=== PATIENT | female | born 1995 | race Caucasian/White ===

== ENCOUNTER 2018-08-19 19:28 | Inpatient (IN) | payer MEDICAID, OTHER ==
[~2018-08-19] VITALS: Ht 160 cm; Wt 95.4 kg
[~2018-08-19 19:28] MED LIST: CEPH-443 PO; CIPR500T4 PO; DICY10CA40 PO; METR500T PO; PREDNISONE; PRENAT PO
[2018-08-19] MEDS ORDERED: morphine 4 MG/ML VIAL IV STA (21:56)
[2018-08-19] MEDS ORDERED: ONDANSETRON 4 MG INJ IV STA (21:56)
[2018-08-19] MEDS ORDERED: SOD CHLORIDE 0.9% 1,000 ML IV ONE (22:00)
--- NOTE | 2018-08-19 22:00 | ERD ---
ER Documentation Chief Complaint Chief Complaint diffuse belly pain x 2 days; hx Crohn's Dse,given Morphine IV@ the clinic ROS All systems reviewed and are negative except as per history of present illness. Medications Home Meds Active Scripts Multivit/Min/Fol Ac/Iron/Pren* ( S*) 1 Tab Tab, 1 TAB PO DAILY, #30 TAB Prov:NORMA CHRISTIANSON PA-C 01/20/16 Cephalexin* (Keflex*) 500 Mg Capsule, 500 MG PO QID for 10 Days, CAP Prov:NORMA CHRISTIANSONC 01/20/16 Ciprofloxacin Hcl* (Ciprofloxacin Hcl*) 500 Mg Tablet, 500 MG PO BID for 10 Days, TAB Prov:NEVIN SABA NP 09/05/15 Metronidazole* (Flagyl*) 500 Mg Tablet, 500 MG PO TID for 10 Days, TAB Prov:NEVIN SABA NP 09/05/15 Dicyclomine HCl (Dicyclomine HCl) 10 Mg Capsule, 10 MG PO QID for abdominal cramping, #30 CAP Prov:NEVIN SABA NP 09/05/15 Reported Medications [none] Unknown Strength No Conflict Check 09/05/15 [Prednisone] No Conflict Check 03/17/13 Allergies Allergies: Coded Allergies: No Known Drug Allergy (Verified Allergy, Mild, 01/20/16) PMhx/Soc History of Surgery: No Anesthesia Reaction: No Hx Neurological Disorder: No Hx Respiratory Disorders: No Hx Cardiac Disorders: No Hx Psychiatric Problems: No Hx Miscellaneous Medical Probl: No Hx Alcohol Use: No Hx Substance Use: No Hx Tobacco Use: No Physical Exam Vitals Vital Signs Date Temp Pulse Resp B/P (MAP) Pulse Ox O2 O2 Flow FiO2 Time Delivery Rate 08/19/18 99.3 81 18 133/61 100 19:32 (85) Physical Exam Const: No acute distress Head: Atraumatic Eyes: Normal Conjunctiva ENT: Normal External Ears, Nose and Mouth. Neck: Full range of motion. No meningismus. Resp: Clear to auscultation bilaterally Cardio: Regular rate and rhythm, no murmurs Abd: Soft, non tender, non distended. Normal bowel sounds. Diffuse abdominal tenderness. No CVA tenderness. Skin: No petechiae or rashes Back: No midline or flank tenderness Ext: No cyanosis, or edema Neur: Awake and alert. No neurological deficits. Psych: Normal Mood and Affect Result Diagram: 08/19/18222008/19/182220 Results 24 hrs Laboratory Tests Test 08/19/18 22:21 White Blood Count 25.0 10^3/ul Red Blood Count 4.78 10^6/ul Hemoglobin 9.2 g/dl Hematocrit 31.6 % Mean Corpuscular Volume 66.1 fl Mean Corpuscular Hemoglobin 19.2 pg Mean Corpuscular Hemoglobin Concent 29.1 g/dl Red Cell Distribution Width 17.5 % Platelet Count 683 10^3/UL Mean Platelet Volume 10.0 fl Immature Granulocytes % 1.000 % Neutrophils % % Segmented Neutrophils % (Manual) 49 % Band Neutrophils % (Manual) 11 % Lymphocytes % % Lymphocytes % (Manual) 24 % Monocytes % % Monocytes % (Manual) 10 % Eosinophils % % Eosinophils % (Manual) 5 % Basophils % % Basophils % (Manual) 1 % Nucleated Red Blood Cells % 0.0 /100WBC Immature Granulocytes # 0.240 10^3/ul Neutrophils # 10^3/ul Neutrophils # (Manual) 12.9 10^3/ul Band Neutrophils # 2.7 10^3/ul Lymphocytes (Manual) 6.0 10^3/ul Lymphocytes # 10^3/ul Monocytes # 10^3/ul Monocytes # (Manual) 2.5 10^3/ul Eosinophils # 10^3/ul Basophils # 10^3/ul Basophils # (Manual) 0.2 10^3/ul Nucleated Red Blood Cells # 10^3/ul Pathologist Review (Hematology) YES Platelet Estimate INCREASED Giant Platelets 2 % Poikilocytosis 2+ Anisocytosis 1+ Microcytosis 1+ Ovalocytes 2+ Acanthocytes 1+ Erythrocyte Sedimentation Rate 35 mm/Hr Urine Color YELLOW Urine Clarity CLOUDY Urine pH 7.0 Urine Specific [place] 1.016 Urine Ketones 1+ mg/dL Urine Nitrite NEGATIVE mg/dL Urine Bilirubin NEGATIVE mg/dL Urine Urobilinogen NEGATIVE mg/dL Urine Leukocyte Esterase 1+ Cherelle/ul Urine Microscopic RBC 13 /HPF Urine Microscopic WBC 11 /HPF Urine Squamous Epithelial Cells FEW /HPF Urine Bacteria FEW /HPF Urine Mucus FEW /HPF Urine Hemoglobin 1+ mg/dL Urine Glucose NEGATIVE mg/dL Urine Total Protein NEGATIVE mg/dl Sodium Level 141 mmol/L Potassium Level 4.0 mmol/L Chloride Level 106 mmol/L Carbon Dioxide Level 25 mmol/L Anion Gap 10 Blood Urea Nitrogen 4 mg/dl Creatinine 0.65 mg/dl Est Glomerular Filtrat Rate mL/min > 60 mL/min Glucose Level 92 mg/dl Calcium Level 9.0 mg/dl Total Bilirubin 0.1 mg/dl Direct Bilirubin 0.00 mg/dl Indirect Bilirubin 0.1 mg/dl Aspartate Amino Transf (AST/SGOT) 12 IU/L Alanine Aminotransferase (ALT/SGPT) 17 IU/L Alkaline Phosphatase 85 IU/L C-Reactive Protein 4.0 mg/dl Total Protein 7.6 g/dl Albumin 3.9 g/dl Globulin 3.70 g/dl Albumin/Globulin Ratio 1.05 Amylase Level 63 U/L Lipase 44 U/L Serum HCG, Qualitative NEGATIVE Urine Opiates Screen Positive Urine Barbiturates Negative Urine Amphetamines Screen Negative Urine Benzodiazepines Screen Negative Urine Cocaine Screen Negative Urine Cannabinoids Negative Current Medications Medications Dose Sig/Lukas Start Time Status Last (Trade) Ordered Route PRN Stop Time Admin Dose Reason Admin Sodium 1,000 ml @ Q1H ONCE 08/19/18 DC 08/19/18 Chloride 1,000 mls/hr IV 22:00 22:31 08/19/18 22:59 Ondansetron 4 mg ONCE STAT 08/19/18 DC 08/19/18 HCl (Zofran IV 21:56 22:30 Inj) 08/19/18 22:00 Morphine 4 mg ONCE STAT 08/19/18 DC 08/19/18 Sulfate IV 21:56 22:30 (morphine) 08/19/18 22:00 10 mg ONCE ONCE 08/19/18 DC Dexamethasone IM 22:30 (Decadron) 08/19/18 22:30 10 mg ONCE ONCE 08/19/18 DC 08/19/18 Dexamethasone IV 22:30 22:47 (Decadron) 08/19/18 22:31 Procedures/MDM Prescription: Follow-up with PCP in the next 24-48 hours. Come back here in the emergency department for any new symptoms or any worsening symptoms. All questions and concerns were answered. Patient and family members verbalized understanding and agreed with plan of care. Hemodynamically stable on discharge. SURAJ ALEJO Aug 19, 2018 22:00
[2018-08-19] MEDS ORDERED: DEXAMETHASONE 10 MG/ML 1 ML INJ IM ONE (22:30)
[2018-08-19] MEDS ORDERED: DEXAMETHASONE 10 MG/ML 1 ML INJ IV ONE (22:30)
[2018-08-20] MEDS ORDERED: SOD CHLORIDE 0.9% 1,000 ML IV STA (00:16)
[2018-08-20] MEDS ORDERED: PIPER-TAZO 3.375 GM IV (PMX) 100 ML IVPB ONE (01:00)
--- NOTE | 2018-08-20 01:01 | ERD ---
ER Documentation Chief Complaint Chief Complaint diffuse belly pain x 2 days; hx Crohn's Dse,given Morphine IV@ the clinic HPI 22-year-old female with a history of Crohn's disease not currently on any medications presenting to the ER complaining of diffuse abdominal pain and bloody stools for the past 2 days. She was seen at [facility] yesterday and admission was recommended, but the patient signed out AGAINST MEDICAL ADVICE because they were going to transfer her to another hospital. She was given 2 oral antibiotics to take at home, but she has been vomiting that antibiotics up and cannot tolerate them. She is having intermittent cramping pain, that worsens after she has a bowel movement. She complains of feeling generally weak. She denies any nausea, fever, chills. She currently does not have a doctor who is taking care of her Crohn's. She just moved here from [facility] and her primary care doctor is Dr. Alexandre, but she has not seen this doctor yet. ROS All systems reviewed and are negative except as per history of present illness. Medications Home Meds Active Scripts Multivit/Min/Fol Ac/Iron/Pren* ( S*) 1 Tab Tab, 1 TAB PO DAILY, #30 TAB Prov:NORMA CHRISTIANSON PA-C 01/20/16 Cephalexin* (Keflex*) 500 Mg Capsule, 500 MG PO QID for 10 Days, CAP Prov:NROMA CHRISTIANSON PA-C 01/20/16 Ciprofloxacin Hcl* (Ciprofloxacin Hcl*) 500 Mg Tablet, 500 MG PO BID for 10 Days, TAB Prov:NEVIN SABA [employer] 09/05/15 Metronidazole* (Flagyl*) 500 Mg Tablet, 500 MG PO TID for 10 Days, TAB Prov:NEVIN SABA NP 09/05/15 Dicyclomine HCl (Dicyclomine HCl) 10 Mg Capsule, 10 MG PO QID for abdominal cramping, #30 CAP Prov:NEVIN SABA NP 09/05/15 Reported Medications [none] Unknown Strength No Conflict Check 09/05/15 [Prednisone] No Conflict Check 03/17/13 Allergies Allergies: Coded Allergies: No Known Drug Allergy (Verified Allergy, Mild, 01/20/16) PMhx/Soc History of Surgery: Yes (, CHOLECYSTECTOMY) Anesthesia Reaction: No Hx Neurological Disorder: No Hx Respiratory Disorders: No Hx Cardiac Disorders: No Hx Psychiatric Problems: No Hx Miscellaneous Medical Probl: Yes (CROHNS DIS) Hx Alcohol Use: No Hx Substance Use: No Hx Tobacco Use: No FmHx Family History: No diabetes Physical Exam Vitals Vital Signs Date Temp Pulse Resp B/P (MAP) Pulse Ox O2 O2 Flow FiO2 Time Delivery Rate 08/20/18 85 16 115/70 96 Room Air 04:00 (85) 08/20/18 98.7 94 18 107/64 95 Room Air 02:00 (78) 08/19/18 99.3 81 18 133/61 100 19:32 (85) Physical Exam Const: No acute distress Head: Atraumatic Eyes: Normal Conjunctiva ENT: Normal External Ears, Nose and Mouth. Neck: Full range of motion. No meningismus. Resp: Clear to auscultation bilaterally Cardio: Regular rate and rhythm, no murmurs Abd: Soft, minimal diffuse tenderness, non distended. Hyperactive bowel sounds Skin: Pale skin. No petechiae or rashes Back: No midline or flank tenderness Ext: No cyanosis, or edema Neur: Awake and alert Psych: Normal Mood and Affect Result Diagram: 08/19/18222008/19/182220 Results 24 hrs Laboratory Tests Test 08/19/18 22:21 08/20/18 01:57 White Blood Count 25.0 10^3/ul Red Blood Count 4.78 10^6/ul Hemoglobin 9.2 g/dl Hematocrit 31.6 % Mean Corpuscular Volume 66.1 fl Mean Corpuscular Hemoglobin 19.2 pg Mean Corpuscular Hemoglobin Concent 29.1 g/dl Red Cell Distribution Width 17.5 % Platelet Count 683 10^3/UL Mean Platelet Volume 10.0 fl Immature Granulocytes % 1.000 % Neutrophils % % Segmented Neutrophils % (Manual) 49 % Band Neutrophils % (Manual) 11 % Lymphocytes % % Lymphocytes % (Manual) 24 % Monocytes % % Monocytes % (Manual) 10 % Eosinophils % % Eosinophils % (Manual) 5 % Basophils % % Basophils % (Manual) 1 % Nucleated Red Blood Cells % 0.0 /100WBC Immature Granulocytes # 0.240 10^3/ul Neutrophils # 10^3/ul Neutrophils # (Manual) 12.9 10^3/ul Band Neutrophils # 2.7 10^3/ul Lymphocytes (Manual) 6.0 10^3/ul Lymphocytes # 10^3/ul Monocytes # 10^3/ul Monocytes # (Manual) 2.5 10^3/ul Eosinophils # 10^3/ul Basophils # 10^3/ul Basophils # (Manual) 0.2 10^3/ul Nucleated Red Blood Cells # 10^3/ul Pathologist Review (Hematology) YES Platelet Estimate INCREASED Giant Platelets 2 % Poikilocytosis 2+ Anisocytosis 1+ Microcytosis 1+ Ovalocytes 2+ Acanthocytes 1+ Erythrocyte Sedimentation Rate 35 mm/Hr Urine Color YELLOW Urine Clarity CLOUDY Urine pH 7.0 Urine Specific [place] 1.016 Urine Ketones 1+ mg/dL Urine Nitrite NEGATIVE mg/dL Urine Bilirubin NEGATIVE mg/dL Urine Urobilinogen NEGATIVE mg/dL Urine Leukocyte Esterase 1+ Cherelle/ul Urine Microscopic RBC 13 /HPF Urine Microscopic WBC 11 /HPF Urine Squamous Epithelial Cells FEW /HPF Urine Bacteria FEW /HPF Urine Mucus FEW /HPF Urine Hemoglobin 1+ mg/dL Urine Glucose NEGATIVE mg/dL Urine Total Protein NEGATIVE mg/dl Sodium Level 141 mmol/L Potassium Level 4.0 mmol/L Chloride Level 106 mmol/L Carbon Dioxide Level 25 mmol/L Anion Gap 10 Blood Urea Nitrogen 4 mg/dl Creatinine 0.65 mg/dl Est Glomerular Filtrat Rate mL/min > 60 mL/min Glucose Level 92 mg/dl Calcium Level 9.0 mg/dl Total Bilirubin 0.1 mg/dl Direct Bilirubin 0.00 mg/dl Indirect Bilirubin 0.1 mg/dl Aspartate Amino Transf (AST/SGOT) 12 IU/L Alanine Aminotransferase (ALT/SGPT) 17 IU/L Alkaline Phosphatase 85 IU/L C-Reactive Protein 4.0 mg/dl Total Protein 7.6 g/dl Albumin 3.9 g/dl Globulin 3.70 g/dl Albumin/Globulin Ratio 1.05 Amylase Level 63 U/L Lipase 44 U/L Serum HCG, Qualitative NEGATIVE Urine Opiates Screen Positive Urine Barbiturates Negative Urine Amphetamines Screen Negative Urine Benzodiazepines Screen Negative Urine Cocaine Screen Negative Urine Cannabinoids Negative POC Venous Lactate 1.2 mmol/L Current Medications Medications Dose Sig/Lukas Start Time Status Last (Trade) Ordered Route PRN Stop Time Admin Dose Reason Admin Sodium 1,000 ml @ Q1H ONCE 08/19/18 DC 08/19/18 Chloride 1,000 mls/hr IV 22:00 22:31 08/19/18 22:59 Ondansetron 4 mg ONCE STAT 08/19/18 DC 08/19/18 HCl (Zofran IV 21:56 22:30 Inj) 08/19/18 22:00 Morphine 4 mg ONCE STAT 08/19/18 DC 08/19/18 Sulfate IV 21:56 22:30 (morphine) 08/19/18 22:00 10 mg ONCE ONCE 08/19/18 DC Dexamethasone IM 22:30 (Decadron) 08/19/18 22:30 10 mg ONCE ONCE 08/19/18 DC 08/19/18 Dexamethasone IV 22:30 22:47 (Decadron) 08/19/18 22:31 Sodium 1,000 ml @ Q1H STAT 08/20/18 DC 08/20/18 Chloride 1,000 mls/hr IV 00:16 00:25 08/20/18 01:15 Piperacillin 100 ml @ ONCE ONCE 08/20/18 DC 08/20/18 Sod/ 200 mls/hr IVPB 01:00 01:45 Tazobactam 08/20/18 01:29 Sod Morphine 4 mg ONCE STAT 08/20/18 DC 08/20/18 Sulfate IV 03:30 03:39 (morphine) 08/20/18 03:31 Ondansetron 4 mg BRIDGE ORDER 08/20/18 HCl (Zofran PRN IV 04:30 Inj) NAUSEA/VOMITI 08/21/18 04:29 NG 650 mg ER BRIDGE 08/20/18 Acetaminophen PRN PO 04:30 (Tylenol .MILD PAIN 08/21/18 04:29 Tab) 1-3 OR TEMP Procedures/MDM EMERGENT LABS AND DIAGNOSTIC STUDIES: Lab Results above were reviewed and interpreted by me. CBC significant leukocytosis, concerning for infection. Thrombocytosis also concerning for acute inflammation CMP: No evidence of electrolyte abnormality, renal failure, hypoglycemia, liver failure, or biliary obstruction Lactate within normal limits without evidence of sepsis or tissue hypoperfusion UA: no evidence of infection negative ESR and CRP are elevated, consistent with acute inflammation Initial Nursing notes reviewed. Previous Medical Records requested via the Electronic Health Record. EMERGENCY DEPARTMENT COURSE / MEDICAL DECISION MAKING: Patient had labs and CT scan done yesterday at [place]. I reviewed the results and it shows white blood cell count of 20, hemoglobin 9.9, platelets 641 CT abdomen and pelvis showed findings compatible with inflammatory bowel disease involving primarily the colon without abscess or perforation. Patient is presenting with worsening symptoms and is unable to tolerate oral antibiotics at home. Her labs today show increasing white blood cell count. Her presentation is not consistent with sepsis, however given her increasing white blood cell count, I cannot rule out an underlying bacterial colitis. Blood cultures were collected, Steroids IV, and IV fluids and IV antibiotics were given. Patient will require admission for further management. Accepting Care Team: Current data and ongoing care discussed. Time: Time of admission Primary Provider: Dr.Kama Hawk Diagnosis: Primary Impression: Crohn's colitis Digestive disease complication type: with rectal bleeding Qualified Codes: K50.111 - Crohn's disease of large intestine with rectal bleeding Additional Impressions: Iron deficiency anemia Iron deficiency anemia type: chronic blood loss Qualified Codes: D50.0 - Iron deficiency anemia secondary to blood loss (chronic) Thrombocytosis Condition: Serious ALO ÁLVAREZ MD Aug 20, 2018 01:01
[2018-08-20] MEDS ORDERED: morphine 4 MG/ML VIAL IV STA (03:30)
[2018-08-20] MEDS ORDERED: ONDANSETRON 4 MG INJ IV PRN ×2 (04:30→07:00)
[2018-08-20] MEDS ORDERED: ACETAMINOPHEN 325 MG TAB PO PRN ×2 (04:30→07:00)
[2018-08-20 06:21] VITALS: Ht 160 cm; Wt 95.4 kg
[2018-08-20 06:29] VITALS: BP 93/51; PULSE 70; RESP 17
[2018-08-20] MEDS ORDERED: morphine 2 MG INJ IV PRN (07:00)
[2018-08-20 07:25] VITALS: BP 98/54; PULSE 54; RESP 16
[2018-08-20] MEDS: DEXTROSE 5%-0.45% NACL 1,000 ML IV SCH ×2 (08:09→16:32)
[2018-08-20] MEDS: FAMOTIDINE 20 MG TAB PO SCH ×2 (08:09→20:15)
[2018-08-20] MEDS: morphine 4 MG/ML VIAL IV PRN ×4 (08:09→20:56)
--- NOTE | 2018-08-20 11:45 | HP ---
Date/Time of Note Date/Time of Note DATE: 08/20/18 TIME: 11:27 Assessment/Plan VTE Prophylaxis Risk score (from [facility])>0 risk: 0 SCD applied (from [facility]): Yes Pharmacological prophylaxis: NA/contraindicated Pharm contraindication: bleeding Lines/Catheters IV Catheter Type (from [facility]): Peripheral IV Assessment/Plan Assessment/Plan 22-year-old female with: 1. Suspected acute Crohn's disease flare, patient with abdominal pain, mild to moderate rectal bleeding, laboratory data consistent with acute inflammatory process with elevated ESR, CRP, WBC and also platelets. Of note patient did get large doses of steroids approximately 3 days ago both hydrocortisone 20 mg IV x1 and prednisone 50 mg p.o. x1 at [facility]. We will follow-up on blood cultures from [place]. Cultures drawn here, stool studies sent out including C. difficile. Continue Zosyn for now. GI consult prior to any additional steroids to be given. Follow up recommendations from GI. Clear liquid, IV fluids. 2. Anemia, likely chronic and secondary to chronic disease. Patient may also have acute component given ongoing rectal bleeding. Monitor hemoglobin, plan for transfusion for hemoglobin < 7 3. Thrombocytosis, likely in setting of inflammatory process and/or underlying infection. Continue current antibiotics and monitor. 4. Positive UA: We will send urine culture. Patient on broad-spectrum an tibiotics already. Prophylaxis: SCDs for DVT prophylaxis, Pepcid for GI prophylaxis Disposition: Clear liquids, IV fluids, GI consult, follow-up cultures from [facility] and stool culture to be sent today. Result Diagram: 08/20/18 0748 08/20/18 0748 Results 24hrs Laboratory Tests Test 08/19/18 22:21 08/20/18 01:57 08/20/18 04:23 08/20/18 07:48 White Blood Count 25.0 #H 27.3 H Red Blood Count 4.78 5.03 Hemoglobin 9.2 #L 9.6 L Hematocrit 31.6 L 33.3 L Mean Corpuscular 66.1 L 66.2 L Volume Mean Corpuscular 19.2 #L 19.1 L Hemoglobin Mean Corpuscular 29.1 L 28.8 L Hemoglobin Concent Red Cell 17.5 #H 17.5 H Distribution Width Platelet Count 683 H 725 H Mean Platelet Volume 10.0 9.7 Immature 1.000 H 1.100 H Granulocytes % Neutrophils % Segmented 49 64 Neutrophils % (Manual) Band Neutrophils % 11 H 28 H (Manual) Lymphocytes % Lymphocytes % 24 8 L (Manual) Monocytes % Monocytes % (Manual) 10 Eosinophils % Eosinophils % 5 (Manual) Basophils % Basophils % (Manual) 1 Nucleated Red Blood 0.0 0.0 Cells % Immature 0.240 H 0.300 H Granulocytes # Neutrophils # Neutrophils # 12.9 H 19.5 H (Manual) Band Neutrophils # 2.7 H 7.6 H Lymphocytes (Manual) 6.0 H 2.1 Lymphocytes # Monocytes # Monocytes # (Manual) 2.5 H Eosinophils # Basophils # Basophils # (Manual) 0.2 H Nucleated Red Blood Cells # Pathologist YES Review (Hematology) Platelet Estimate INCREASED INCREASED Giant Platelets 2 H 1 H Poikilocytosis 2+ 3+ Anisocytosis 1+ 3+ Microcytosis 1+ 3+ Ovalocytes 2+ Acanthocytes 1+ Erythrocyte 35 H 36 H Sedimentation Rate Urine Color YELLOW Urine Clarity CLOUDY A Urine pH 7.0 Urine Specific 1.016 [place] Urine Ketones 1+ H Urine Nitrite NEGATIVE Urine Bilirubin NEGATIVE Urine Urobilinogen NEGATIVE Urine Leukocyte 1+ H Esterase Urine Microscopic 13 H RBC Urine Microscopic 11 H WBC Urine Squamous FEW Epithelial Cells Urine Bacteria FEW A Urine Mucus FEW A Urine Hemoglobin 1+ H Urine Glucose NEGATIVE Urine Total Protein NEGATIVE Sodium Level 141 141 Potassium Level 4.0 4.3 Chloride Level 106 107 Carbon Dioxide Level 25 23 Anion Gap 10 11 Blood Urea Nitrogen 4 L 2 L Creatinine 0.65 0.53 Est Glomerular > 60 > 60 Filtrat Rate mL/min Glucose Level 92 149 # Calcium Level 9.0 9.2 Total Bilirubin 0.1 L Direct Bilirubin 0.00 Indirect Bilirubin 0.1 Aspartate Amino 12 L Transf (AST/SGOT) Alanine 17 Aminotransferase (AL T/SGPT) Alkaline Phosphatase 85 C-Reactive Protein 4.0 H 3.8 H Total Protein 7.6 Albumin 3.9 Globulin 3.70 H Albumin/Globulin 1.05 Ratio Amylase Level 63 Lipase 44 Serum HCG, NEGATIVE Qualitative Urine Opiates Screen Positive Urine Barbiturates Negative Urine Amphetamines Negative Screen Urine Negative Benzodiazepines Screen Urine Cocaine Screen Negative Urine Cannabinoids Negative POC Venous Lactate 1.2 Lactic Acid Level 0.8 Polychromasia 3+ Hypochromasia 2+ Phosphorus Level 2.8 Magnesium Level 2.1 HPI/ROS Admit Date/Time Admit Date/Time Aug 19, 2018 at 23:49 Hx of Present Illness Chief complaint: Abdominal pain, chills, rectal bleeding History of presenting illness: This is a 22-year-old female with a history of Crohn's disease apparently diagnosed in childhood and has been off all medications for the past 10 years who presented at [facility] on 08/18 with complains of abdominal pain for 24 hours, loose stools, rectal bleeding and chills for 10-12 days. Patient subsequently left AMA when she was told that she was being transferred to [facility]. She presented in the ER here at [facility] early this morning with complaint of ongoing abdominal pain and rectal bleeding. According to records from [facility], patient was given a dose of hydrocortisone 20 mg x1 and subsequently pred nisone 50 mg p.o. x1 prior to her leaving AGAINST MEDICAL ADVICE she was also given a prescription for ciprofloxacin and Flagyl that she did not take. WBC at [facility] was 20,000, is up to 27,000 this morning here at [facility]. Patient reports that for the past 10 years, she has had episodes of flare-ups but never really took correction maintenance medications. Her current symptoms started approximately 10-12 days ago with loose stools and rectal bleeding. She has seen occasionally bright red blood but most of the time dark blood. Her abdominal pain started approximately 3-4 days ago, it will start on the lower part of the abdomen and generalized to the whole abdomen. Currently she still having moderate to severe pain relieved with morphine, she reports that her pain is unchanged over the past 3-4 days. She had a CAT scan of the abdomen and pelvis with IV contrast at [facility] that showed signs of colitis, no abscess or perforation seen. She reports having chills at home but has been tolerating p.o. most of the time. She reports nausea and vomiting over the past 2-3 days. No genitourinary complaints reported, no cardiopulmonary complaints reported. 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 Medications Current Medications Dextrose/Sodium Chloride 1,000 ml @ 125 mls/hr Q8H IV Last administered on 08/20/18at 08:09; Admin Dose 125 MLS/HR; Start 08/20/18 at 07:00 Piperacillin Sod/ Tazobactam Sod 100 ml @ 200 mls/hr Q6 IVPB ; Start 08/20/18 at 12:00 Morphine Sulfate (morphine) 4 mg Q4H PRN IV SEVERE PAIN LEVEL 7-10 Last administered on 08/20/18at 08:09; Admin Dose 4 MG; Start 08/20/18 at 07:00 Morphine Sulfate (morphine) 2 mg Q4H PRN IV MODERATE PAIN LEVEL 4-6; Start 08/20/18 at 07:00 Famotidine (Pepcid) 20 mg BID PO Last administered on 08/20/18at 08:09; Admin Dose 20 MG; Start 08/20/18 at 09:00 Acetaminophen (Tylenol Tab) 650 mg Q6H PRN PO MILD PAIN(1-3)OR ELEVATED TEMP; Start 08/20/18 at 07:00 Ondansetron HCl (Zofran Inj) 4 mg Q6H PRN IV NAUSEA AND/OR VOMITING; Start 08/20/18 at 07:00 Coded Allergies: No Known Drug Allergy (Unverified Allergy, Mild, 08/20/18) Past Surgical History Status post cholecystectomy remotely Status post couple years ago. Social History Alcohol Use: none Smoking Status: Never smoker Drug Use: none Exam/Review of Systems Vital Signs Vitals Vital Signs Date Temp Pulse Resp B/P (MAP) Pulse Ox O2 O2 Flow FiO2 Time Delivery Rate 08/20/18 98.1 54 16 98/54 (69) 94 Room Air 07:25 Intake and Output 08/19/18 08/19/18 08/20/18 1515:00 23:00 07:00 IntakeIntake Total 2100 ml BalanceBalance 2100 ml Exam Constitutional: alert, oriented, other (Obese) Psych: no complaints Head: normocephalic Eyes: nl conjunctiva, EOMI, nl lids, nl sclera ENMT: nl external ears & nose, nl lips & teeth, nl nasal mucosa & septum Neck: supple, non-tender Respiratory: clear to auscultation, normal air movement Cardiovascular: regular rate and rhythm, nl pulses Gastrointestinal: soft, tender (Diffusely, primarily lower abdomen.) Musculoskeletal: nl extremities to inspection, nl gait and stance Extremities: normal pulses, other (No edema, clubbing or cyanosis) Neurological: [employer] II-XII intact, nl mental status, nl speech, nl strength Additional Comments CT abdomen pelvis with IV contrast from [place] on 08/18 reported as: Findings compatible with inflammatory bowel disease involving primarily the colon. No abscess or evidence of free perforation is noted Post cholecystectomy Full report requested and will be placed in the chart. MASOUD ORTEGA Aug 20, 2018 11:38
[2018-08-20] MEDS: PIPER-TAZO 3.375 GM IV (PMX) 100 ML IVPB SCH ×2 (12:37→17:34)
--- NOTE | 2018-08-20 13:45 | CONS ---
Assessment/Plan Assessment/Plan Assessment/Plan (Daily) Summary Assessment and Plan: Assessment: Abdominal pain/diarrhea -Crohn's flare (CRP/ESR elevated) vs infectious vs other -Ct 08/18/18- from [facility]- imaging better with inflammatory bowel disease and vo miting primarily the colon History of Crohn's disease- not on medication at home Leukocytosis (infectious vs reactive) Thrombocytosis Normocytic anemia UTI- on ABX Plan: Start mesalamine Await stool studies prior to starting steroid therapy Advance diet to low residue Pt will need out-pt colonoscopy Monitor labs Further recommendations based on clinical course Patient seen in collaboration with Dr. Tiwari CC: LOPEZ TIWARI ; Consultation Date/Type/Reason Admit Date/Time Aug 19, 2018 at 23:49 Date of Consultation: Aug 20, 2018 Type of Consult GI Reason for Consultation History of Crohn's disease Query Crohn's flare Date/Time of Note DATE: 08/20/18 TIME: 13:20 Hx of Present Illness This is a 22 year old female with PMH of Crohn's disease dx as a child, at one point she was under the care of a physician at [facility]was taking Asacol/prednisone, however the patient moved to [facility] and has not been under the care of a GI provider or has been on medication for IBD in some time. For the past 5-6 days she has been c/o abdominal pain which has become progressively worse, as well, as bloody diarrhea up to 5-8 per day. She presented to [facility] on August 18 there she underwent a CAT scan with contrast impression showing findings compatible with inflammatory bowel disease involving primarily the colon. No abscess or evidence of free perforation is noted. Post cholecystectomy. Patient was going to be transferred to [facility] secondary to insurance reasons however she left [facility] because she did not want to be transferred she was given 2 different oral antibiotics to take at home but she was unable to tolerate them 2/2 nausea and vomiting. Leukocytosis WBC 27.3, thrombocytosis platelet count 725, elevated C-reactive protein 3.8 today and an elevated ESR of 36 today. Currently patient complains of abdominal discomfort she denies nausea/vomiting. She states in the past 24 hours she had had x3 Bm, less blood has been noted. Currently we will start patient on hutchins williams, will hold off on steroid therapy until stool studies have returned, and to advance diet to low residue. Patient will additionally need to follow-up after discharge for outpatient colonoscopy. She believes her last colonoscopy was completed as a child and does not know results. Review of Systems: A 12 system, review was conducted and is negative except as noted in the HPI or here. Past Medical History Home Meds Discontinued Reported Medications [none] Unknown Strength No Conflict Check 09/05/15 [Prednisone] No Conflict Check 03/17/13 Discontinued Scripts Multivit/Min/Fol Ac/Iron/Pren* ( S*) 1 Tab Tab, 1 TAB PO DAILY, #30 TAB Prov:NORMA CHRISTIANSON PA-C 01/20/16 Cephalexin* (Keflex*) 500 Mg Capsule, 500 MG PO QID for 10 Days, CAP Prov:NORMA CHRISTIANSON PA-C 01/20/16 Ciprofloxacin Hcl* (Ciprofloxacin Hcl*) 500 Mg Tablet, 500 MG PO BID for 10 D ays, TAB Prov:NEVIN SABA GEAR TOOTH GRINDING MACHINE OPERATOR 09/05/15 Metronidazole* (Flagyl*) 500 Mg Tablet, 500 MG PO TID for 10 Days, TAB Prov:NEVIN SABA. GEAR TOOTH GRINDING MACHINE OPERATOR 09/05/15 Dicyclomine HCl (Dicyclomine HCl) 10 Mg Capsule, 10 MG PO QID for abdominal cramping, #30 CAP Prov:NEVIN SABA. GEAR TOOTH GRINDING MACHINE OPERATOR 09/05/15 Medications Current Medications Dextrose/Sodium Chloride 1,000 ml @ 125 mls/hr Q8H IV Last administered on 08/20/18at 08:09; Admin Dose 125 MLS/HR; Start 08/20/18 at 07:00 Piperacillin Sod/ Tazobactam Sod 100 ml @ 200 mls/hr Q6 IVPB Last administered on 08/20/18at 12:37; Admin Dose 200 MLS/HR; Start 08/20/18 at 12:00 Morphine Sulfate (morphine) 4 mg Q4H PRN IV SEVERE PAIN LEVEL 7-10 Last administered on 08/20/18at 12:37; Admin Dose 4 MG; Start 08/20/18 at 07:00 Morphine Sulfate (morphine) 2 mg Q4H PRN IV MODERATE PAIN LEVEL 4-6; Start 08/20/18 at 07:00 Famotidine (Pepcid) 20 mg BID PO Last administered on 08/20/18at 08:09; Admin Dose 20 MG; Start 08/20/18 at 09:00 Acetaminophen (Tylenol Tab) 650 mg Q6H PRN PO MILD PAIN(1-3)OR ELEVATED TEMP; Start 08/20/18 at 07:00 Ondansetron HCl (Zofran Inj) 4 mg Q6H PRN IV NAUSEA AND/OR VOMITING; Start 08/20/18 at 07:00 Allergies: Coded Allergies: No Known Drug Allergy (Unverified Allergy, Mild, 08/20/18) Social History Alcohol Use: none Smoking Status: Never smoker Drug Use: none Exam/Review of Systems Exam Vitals Vital Signs Date Temp Pulse Resp B/P (MAP) Pulse Ox O2 O2 Flow FiO2 Time Delivery Rate 08/20/18 98.1 54 16 98/54 (69) 94 Room Air 07:25 Intake and Output 08/19/18 08/19/18 08/20/18 1515:00 23:00 07:00 IntakeIntake Total 2100 ml BalanceBalance 2100 ml PHYSICAL EXAMINATION: GENERAL: Well developed, well nourished, obese, alert & oriented x 3, in no acute distress SKIN: No lesions, no stigmata chronic liver disease, no evidence of bleeding diathesis EYES: Pupils equal reactive to light and accommodation, full extraocular movements, sclera clear, non-icteric, no discharge. EARS/NOSE AND THROAT: Ears normal, nose normal, oropharynx normal, oral membranes well hydrated without lesions. NECK: Supple, no masses CHEST: Inspection within normal limits. CARDIOVASCULAR: Heart: Regular rate and rhythm RESPIRATORY: Lungs clear to auscultation and percussion, no wheezing, no rubs GASTROINTESTINAL AND LIVER: Abdomen: Soft, generalized tenderness, non- distended, no hernias, no masses, no organomegaly, no ascites, no guarding, no rebound tenderness, normoactive bowel sounds. Rectal: Deferred. Results Result Diagram: 08/20/18 0748 08/20/18 0748 Results 24hrs Laboratory Tests Test 08/19/18 22:21 08/20/18 01:57 08/20/18 04:23 08/20/18 07:48 White Blood Count 25.0 #H 27.3 H Red Blood Count 4.78 5.03 Hemoglobin 9.2 #L 9.6 L Hematocrit 31.6 L 33.3 L Mean Corpuscular 66.1 L 66.2 L Volume Mean Corpuscular 19.2 #L 19.1 L Hemoglobin Mean Corpuscular 29.1 L 28.8 L Hemoglobin Concent Red Cell 17.5 #H 17.5 H Distribution Width Platelet Count 683 H 725 H Mean Platelet Volume 10.0 9.7 Immature 1.000 H 1.100 H Granulocytes % Neutrophils % Segmented 49 64 Neutrophils % (Manual) Band Neutrophils % 11 H 28 H (Manual) Lymphocytes % Lymphocytes % 24 8 L (Manual) Monocytes % Monocytes % (Manual) 10 Eosinophils % Eosinophils % 5 (Manual) Basophils % Basophils % (Manual) 1 Nucleated Red Blood 0.0 0.0 Cells % Immature 0.240 H 0.300 H Granulocytes # Neutrophils # Neutrophils # 12.9 H 19.5 H (Manual) Band Neutrophils # 2.7 H 7.6 H Lymphocytes (Manual) 6.0 H 2.1 Lymphocytes # Monocytes # Monocytes # (Manual) 2.5 H Eosinophils # Basophils # Basophils # (Manual) 0.2 H Nucleated Red Blood Cells # Pathologist YES Review (Hematology) Platelet Estimate INCREASED INCREASED Giant Platelets 2 H 1 H Poikilocytosis 2+ 3+ Anisocytosis 1+ 3+ Microcytosis 1+ 3+ Ovalocytes 2+ Acanthocytes 1+ Erythrocyte 35 H 36 H Sedimentation Rate Urine Color YELLOW Urine Clarity CLOUDY A Urine pH 7.0 Urine Specific 1.016 Manly Urine Ketones 1+ H Urine Nitrite NEGATIVE Urine Bilirubin NEGATIVE Urine Urobilinogen NEGATIVE Urine Leukocyte 1+ H Esterase Urine Microscopic 13 H RBC Urine Microscopic 11 H WBC Urine Squamous FEW Epithelial Cells Urine Bacteria FEW A Urine Mucus FEW A Urine Hemoglobin 1+ H Urine Glucose NEGATIVE Urine Total Protein NEGATIVE Sodium Level 141 141 Potassium Level 4.0 4.3 Chloride Level 106 107 Carbon Dioxide Level 25 23 Anion Gap 10 11 Blood Urea Nitrogen 4 L 2 L Creatinine 0.65 0.53 Est Glomerular > 60 > 60 Filtrat Rate mL/min Glucose Level 92 149 # Calcium Level 9.0 9.2 Total Bilirubin 0.1 L Direct Bilirubin 0.00 Indirect Bilirubin 0.1 Aspartate Amino 12 L Transf (AST/SGOT) Alanine 17 Aminotransferase (AL T/SGPT) Alkaline Phosphatase 85 C-Reactive Protein 4.0 H 3.8 H Total Protein 7.6 Albumin 3.9 Globulin 3.70 H Albumin/Globulin 1.05 Ratio Amylase Level 63 Lipase 44 Serum HCG, NEGATIVE Qualitative Urine Opiates Screen Positive Urine Barbiturates Negative Urine Amphetamines Negative Screen Urine Negative Benzodiazepines Screen Urine Cocaine Screen Negative Urine Cannabinoids Negative POC Venous Lactate 1.2 Lactic Acid Level 0.8 Polychromasia 3+ Hypochromasia 2+ Phosphorus Level 2.8 Magnesium Level 2.1 Medications Medication Current Medications Dextrose/Sodium Chloride 1,000 ml @ 125 mls/hr Q8H IV Last administered on 08/20/18 08:09; Admin Dose 125 MLS/HR; Start 08/20/18 at 07:00 Piperacillin Sod/ Tazobactam Sod 100 ml @ 200 mls/hr Q6 IVPB Last administered on 08/20/18 12:37; Admin Dose 200 MLS/HR; Start 08/20/18 at 12:00 Morphine Sulfate (morphine) 4 mg Q4H PRN IV SEVERE PAIN LEVEL 7-10 Last administered on 08/20/18at 12:37; Admin Dose 4 MG; Start 08/20/18 at 07:00 Morphine Sulfate (morphine) 2 mg Q4H PRN IV MODERATE PAIN LEVEL 4-6; Start 08/20/18 at 07:00 Famotidine (Pepcid) 20 mg BID PO Last administered on 08/20/18at 08:09; Admin Dose 20 MG; Start 08/20/18 at 09:00 Acetaminophen (Tylenol Tab) 650 mg Q6H PRN PO MILD PAIN(1-3)OR ELEVATED TEMP; Start 08/20/18 at 07:00 Ondansetron HCl (Zofran Inj) 4 mg Q6H PRN IV NAUSEA AND/OR VOMITING; Start 08/20/18 at 07:00 ESTEBAN ALARCON Aug 20, 2018 13:35
[2018-08-20 14:13] VITALS: BP 99/64; PULSE 63; RESP 16
[2018-08-20 19:37] VITALS: BP 92/50; PULSE 64; RESP 20
[2018-08-20] MEDS: MESALAMINE (EC) 400 MG CAP PO SCH (20:15)
[2018-08-21] MEDS: PIPER-TAZO 3.375 GM IV (PMX) 100 ML IVPB SCH ×5 (00:09→23:40)
[2018-08-21] MEDS: morphine 4 MG/ML VIAL IV PRN ×5 (01:04→22:01)
[2018-08-21 02:02] VITALS: BP 99/58; PULSE 64; RESP 17
[2018-08-21] MEDS: DEXTROSE 5%-0.45% NACL 1,000 ML IV SCH ×2 (05:35→07:00)
[2018-08-21 08:02] VITALS: BP 102/48; PULSE 85; RESP 16
[2018-08-21 09:38] VITALS: BP 116/65; PULSE 85
[2018-08-21] MEDS: FAMOTIDINE 20 MG TAB PO SCH ×2 (09:42→20:36)
[2018-08-21] MEDS: MESALAMINE (EC) 400 MG CAP PO SCH ×3 (09:43→20:36)
--- NOTE | 2018-08-21 10:38 | PN ---
Date/Time of Note Date/Time of Note DATE: 08/21/18 TIME: 10:27 Assessment/Plan VTE Prophylaxis Risk score (from Ns)>0 risk: 1 SCD applied (from [facility] [place] Yes Pharmacological prophylaxis: NA/contraindicated Pharm contraindication: bleeding Lines/Catheters IV C[facility] Type [facility]from [facility]): Peripheral IV Assessment/Plan Assessment/Plan 22-year-old female with: 1. Suspected acute Crohn's disease flare, patient with abdominal pain, mild to moderate rectal bleeding, laboratory data consistent with acute inflammatory process with elevated ESR, CRP, WBC and also platelets. Of note patient did get large doses of steroids approximately 3 days prior to admission both hydrocortisone 20 mg IV x1 and prednisone 50 mg p.o. x1 at [place]. Blood cultures from outside hospital and from here no growth to date. Stool studies including C. difficile pending. Continue Zosyn and Asacol. Appreciate GI recommendations. Continue IV fluids and low residue diet. 2. Anemia, likely chronic and secondary to chronic disease. Patient may also have acute component given ongoing rectal bleeding. Hb at 8.1 Monitor hemoglobin, plan for transfusion for hemoglobin < 7 3. Thrombocytosis, likely in setting of inflammatory process and/or underlying infection. Continue current antibiotics and monitor. 4. Positive UA: Urine culture NGTD. UA may have been contaminated. Patient already on antibiotics. Prophylaxis: SCDs for DVT prophylaxis, Pepcid for GI prophylaxis Disposition: On low residue diet per GI, follow GI recommendations today, stool culture and stool C. difficile. Continue IV fluids for now. Result Diagram: 08/21/18 0457 08/21/18 0457 Results 24hrs Laboratory Tests Test 08/21/18 04:57 White Blood Count 26.3 H Red Blood Count 4.19 L Hemoglobin 8.1 L Hematocrit 27.6 L Mean Corpuscular Volume 65.9 L Mean Corpuscular Hemoglobin 19.3 L Mean Corpuscular Hemoglobin Concent 29.3 L Red Cell Distribution Width 17.7 H Platelet Count 642 H Mean Platelet Volume 10.2 Immature Granulocytes % 0.800 H Neutrophils % 79.7 H Lymphocytes % 12.6 L Monocytes % 6.3 Eosinophils % 0.2 Basophils % 0.4 Nucleated Red Blood Cells % 0.1 H Immature Granulocytes # 0.220 H Neutrophils # 20.9 H Lymphocytes # 3.3 H Monocytes # 1.7 H Eosinophils # 0.1 Basophils # 0.1 Nucleated Red Blood Cells # 0.0 Sodium Level 142 Potassium Level 3.5 Chloride Level 105 Carbon Dioxide Level 26 Anion Gap 11 Blood Urea Nitrogen 3 L Creatinine 0.64 Est Glomerular Filtrat Rate mL/min > 60 Glucose Level 104 # Calcium Level 8.6 Phosphorus Level 3.3 Magnesium Level 1.8 Total Bilirubin 0.0 L Direct Bilirubin 0.00 Indirect Bilirubin 0.0 Aspartate Amino Transf (AST/SGOT) 9 L Alanine Aminotransferase (ALT/SGPT) 15 Alkaline Phosphatase 68 Total Protein 6.5 # Albumin 3.2 L Globulin 3.30 H Albumin/Globulin Ratio 0.96 Subjective 24 Hr Interval Summary Free Text/Dictation Patient tolerating low residual diet, she reports that her abdominal pain is slightly improved from yesterday. Bright red blood per rectum not reported. Stool culture and C. difficile sent last night at 9 PM, results pending Exam/Review of Systems Exam Vitals Vital Signs Date Temp Pulse Resp B/P (MAP) Pulse Ox O2 O2 Flow FiO2 Time Delivery Rate 08/21/18 98.1 85 116/65 97 09:38 (82) 08/21/18 16 08:02 08/20/18 Room Air 14:13 Intake and Output 08/20/18 08/20/18 08/21/18 1414:59 22:59 06:59 IntakeIntake Total 500 ml 1500 ml 1200 ml OutputOutput Total 400 ml BalanceBalance 500 ml 1100 ml 1200 ml Constitutional: alert, oriented, well developed Respiratory: clear to auscultation, normal air movement Cardiovascular: regular rate and rhythm, nl pulses Gastrointestinal: soft, tender (Diffusely, slightly improved) Musculoskeletal: nl extremities to inspection Extremities: normal pulses, other (No edema, clubbing or cyanosis) Neurological: HAND MEAT SALTER II-XII intact, nl mental status, nl speech, nl strength Results Results 24hrs Laboratory Tests Test 08/21/18 04:57 White Blood Count 26.3 H Red Blood Count 4.19 L Hemoglobin 8.1 L Hematocrit 27.6 L Mean Corpuscular Volume 65.9 L Mean Corpuscular Hemoglobin 19.3 L Mean Corpuscular Hemoglobin Concent 29.3 L Red Cell Distribution Width 17.7 H Platelet Count 642 H Mean Platelet Volume 10.2 Immature Granulocytes % 0.800 H Neutrophils % 79.7 H Lymphocytes % 12.6 L Monocytes % 6.3 Eosinophils % 0.2 Basophils % 0.4 Nucleated Red Blood Cells % 0.1 H Immature Granulocytes # 0.220 H Neutrophils # 20.9 H Lymphocytes # 3.3 H Monocytes # 1.7 H Eosinophils # 0.1 Basophils # 0.1 Nucleated Red Blood Cells # 0.0 Sodium Level 142 Potassium Level 3.5 Chloride Level 105 Carbon Dioxide Level 26 Anion Gap 11 Blood Urea Nitrogen 3 L Creatinine 0.64 Est Glomerular Filtrat Rate mL/min > 60 Glucose Level 104 # Calcium Level 8.6 Phosphorus Level 3.3 Magnesium Level 1.8 Total Bilirubin 0.0 L Direct Bilirubin 0.00 Indirect Bilirubin 0.0 Aspartate Amino Transf (AST/SGOT) 9 L Alanine Aminotransferase (ALT/SGPT) 15 Alkaline Phosphatase 68 Total Protein 6.5 # Albumin 3.2 L Globulin 3.30 H Albumin/Globulin Ratio 0.96 Medications Medication Current Medications Dextrose/Sodium Chloride 1,000 ml @ 125 mls/hr Q8H IV Last administered on 08/21/18at 05:35; Admin Dose 125 MLS/HR; Start 08/20/18 at 07:00 Piperacillin Sod/ Tazobactam Sod 100 ml @ 200 mls/hr Q6 IVPB Last administered on 08/21/18at 05:35; Admin Dose 200 MLS/HR; Start 08/20/18 at 12:00 Morphine Sulfate (morphine) 4 mg Q4H PRN IV SEVERE PAIN LEVEL 7-10 Last administered on 08/21/18at 09:42; Admin Dose 4 MG; Start 08/20/18 at 07:00 Morphine Sulfate (morphine) 2 mg Q4H PRN IV MODERATE PAIN LEVEL 4-6; Start 08/20/18 at 07:00 Famotidine (Pepcid) 20 mg BID PO Last administered on 08/21/18at 09:42; Admin Dose 20 MG; Start 08/20/18 at 09:00 Acetaminophen (Tylenol Tab) 650 mg Q6H PRN PO MILD PAIN(1-3)OR ELEVATED TEMP; Start 08/20/18 at 07:00 Ondansetron HCl (Zofran Inj) 4 mg Q6H PRN IV NAUSEA AND/OR VOMITING; Start 08/20/18 at 07:00 Mesalamine (Delzicol Dr) 800 mg TID PO Last administered on 08/21/18at 09:43; Admin Dose 800 MG; Start 08/20/18 at 21:00 MASUOD ORTEGA Aug 21, 2018 10:38
[2018-08-21] MEDS ORDERED: POTASSIUM CHLORIDE (SR) 20 MEQ TAB PO STA (10:39)
--- NOTE | 2018-08-21 11:22 | PN ---
Date/Time of Note Date/Time of Note DATE: 08/21/18 TIME: 11:16 Assessment/Plan VTE Prophylaxis Risk score (from Ns)>0 risk: 1 SCD applied (from Nsg): Yes Pharmacological prophylaxis: other (scds) Lines/Catheters IV [facility] Type ([email or web address]): Peripheral IV Assessment/Plan Assessment/Plan Summary Assessment and Plan: Assessment: Abdominal pain/diarrhea -Crohn's flare (CRP/ESR elevated) vs infectious vs other -CT 08/18/18- from [facility]- imaging compatible with inflammatory bowel disease involving primarily the colon. History of Crohn's disease- not on medication at home Leukocytosis (infectious vs reactive) Thrombocytosis Normocytic anemia UTI- on ABX Plan: Continue mesalamine/ Zosyn Pt now only have 1 bm per day 0wth elevated inflammatory markers- will order KUB to assess for constipation Await stool studies prior to starting steroid therapy Continue current diet Pt will need out-pt colonoscopy Monitor labs for now Further recommendations based on clinical course Patient seen in collaboration with Dr. Acosta Subjective: Course reviewed with nursing staff Patient interviewed and examined All labs, imaging and other results reviewed The patient symptomatically improving Discussed labs results, PHYSICAL EXAMINATION: GENERAL: Well developed, well nourished, obese, alert & oriented x 3, in no acute distress SKIN: No lesions, no stigmata chronic liver disease, no evidence of bleeding diathesis EYES: Pupils equal reactive to light and accommodation, full extraocular movements, sclera clear, non-icteric, no discharge. EARS/NOSE AND THROAT: Ears normal, nose normal, oropharynx normal, oral membranes well hydrated without lesions. NECK: Supple, no masses CHEST: Inspection within normal limits. CARDIOVASCULAR: Heart: Regular rate and rhythm RESPIRATORY: Lungs clear to auscultation and percussion, no wheezing, no rubs GASTROINTESTINAL AND LIVER: Abdomen: Soft, generalized tenderness, non- distended, no hernias, no masses, no organomegaly, no ascites, no guarding, no rebound tenderness, normoactive bowel sounds. Rectal: Deferred. Result Diagram: 08/21/18 0457 08/21/18 0457 Results 24hrs Laboratory Tests Test 08/21/18 04:57 White Blood Count 26.3 H Red Blood Count 4.19 L Hemoglobin 8.1 L Hematocrit 27.6 L Mean Corpuscular Volume 65.9 L Mean Corpuscular Hemoglobin 19.3 L Mean Corpuscular Hemoglobin Concent 29.3 L Red Cell Distribution Width 17.7 H Platelet Count 642 H Mean Platelet Volume 10.2 Immature Granulocytes % 0.800 H Neutrophils % 79.7 H Lymphocytes % 12.6 L Monocytes % 6.3 Eosinophils % 0.2 Basophils % 0.4 Nucleated Red Blood Cells % 0.1 H Immature Granulocytes # 0.220 H Neutrophils # 20.9 H Lymphocytes # 3.3 H Monocytes # 1.7 H Eosinophils # 0.1 Basophils # 0.1 Nucleated Red Blood Cells # 0.0 Sodium Level 142 Potassium Level 3.5 Chloride Level 105 Carbon Dioxide Level 26 Anion Gap 11 Blood Urea Nitrogen 3 L Creatinine 0.64 Est Glomerular Filtrat Rate mL/min > 60 Glucose Level 104 # Calcium Level 8.6 Phosphorus Level 3.3 Magnesium Level 1.8 Total Bilirubin 0.0 L Direct Bilirubin 0.00 Indirect Bilirubin 0.0 Aspartate Amino Transf (AST/SGOT) 9 L Alanine Aminotransferase (ALT/SGPT) 15 Alkaline Phosphatase 68 Total Protein 6.5 # Albumin 3.2 L Globulin 3.30 H Albumin/Globulin Ratio 0.96 Exam/Review of Systems Exam Vitals Vital Signs Date Temp Pulse Resp B/P (MAP) Pulse Ox O2 O2 Flow FiO2 Time Delivery Rate 08/21/18 98.1 85 116/65 97 09:38 (82) 08/21/18 16 08:02 08/20/18 Room Air 14:13 Intake and Output 08/20/18 08/20/18 08/21/18 1515:00 23:00 07:00 IntakeIntake Total 500 ml 1500 ml 1200 ml OutputOutput Total 400 ml BalanceBalance 500 ml 1100 ml 1200 ml Results Results 24hrs Laboratory Tests Test 08/21/18 04:57 White Blood Count 26.3 H Red Blood Count 4.19 L Hemoglobin 8.1 L Hematocrit 27.6 L Mean Corpuscular Volume 65.9 L Mean Corpuscular Hemoglobin 19.3 L Mean Corpuscular Hemoglobin Concent 29.3 L Red Cell Distribution Width 17.7 H Platelet Count 642 H Mean Platelet Volume 10.2 Immature Granulocytes % 0.800 H Neutrophils % 79.7 H Lymphocytes % 12.6 L Monocytes % 6.3 Eosinophils % 0.2 Basophils % 0.4 Nucleated Red Blood Cells % 0.1 H Immature Granulocytes # 0.220 H Neutrophils # 20.9 H Lymphocytes # 3.3 H Monocytes # 1.7 H Eosinophils # 0.1 Basophils # 0.1 Nucleated Red Blood Cells # 0.0 Sodium Level 142 Potassium Level 3.5 Chloride Level 105 Carbon Dioxide Level 26 Anion Gap 11 Blood Urea Nitrogen 3 L Creatinine 0.64 Est Glomerular Filtrat Rate mL/min > 60 Glucose Level 104 # Calcium Level 8.6 Phosphorus Level 3.3 Magnesium Level 1.8 Total Bilirubin 0.0 L Direct Bilirubin 0.00 Indirect Bilirubin 0.0 Aspartate Amino Transf (AST/SGOT) 9 L Alanine Aminotransferase (ALT/SGPT) 15 Alkaline Phosphatase 68 Total Protein 6.5 # Albumin 3.2 L Globulin 3.30 H Albumin/Globulin Ratio 0.96 Medications Medication Current Medications Piperacillin Sod/ Tazobactam Sod 100 ml @ 200 mls/hr Q6 IVPB Last administered on 08/21/18 05:35; Admin Dose 200 MLS/HR; Start 08/20/18 at 12:00 Morphine Sulfate (morphine) 4 mg Q4H PRN IV SEVERE PAIN LEVEL 7-10 Last administered on 08/21/18at 09:42; Admin Dose 4 MG; Start 08/20/18 at 07:00 Morphine Sulfate (morphine) 2 mg Q4H PRN IV MODERATE PAIN LEVEL 4-6; Start at 07:00 Famotidine (Pepcid) 20 mg BID PO Last administered on 08/21/18at 09:42; Admin Dose 20 MG; Start 08/20/18 at 09:00 Acetaminophen (Tylenol Tab) 650 mg Q6H PRN PO MILD PAIN(1-3)OR ELEVATED TEMP; Start 08/20/18 at 07:00 Ondansetron HCl (Zofran Inj) 4 mg Q6H PRN IV NAUSEA AND/OR VOMITING; Start 08/20/18 at 07:00 Mesalamine (Delzicol Dr) 800 mg TID PO Last administered on 08/21/18at 09:43; Admin Dose 800 MG; Start 08/20/18 at 21:00 Potassium Chloride/Dextrose/ Sod Cl 1,000 ml @ 125 mls/hr Q8H IV ; Start 08/21/18 at 11:00 ESTEBAN ALARCON Aug 21, 2018 11:22
[2018-08-21] MEDS: D5W-0.45 NACL + KCL 20 MEQ 1,000 ML IV SCH ×3 (12:10→23:00)
[2018-08-21 14:47] VITALS: BP 99/52; PULSE 69; RESP 18
[2018-08-21 17:58] VITALS: BP 112/65; PULSE 77
[2018-08-21 20:00] VITALS: BP 107/55; PULSE 86; RESP 20
[2018-08-22 02:07] VITALS: BP 105/65; PULSE 85; RESP 17
[2018-08-22] MEDS: morphine 4 MG/ML VIAL IV PRN ×5 (02:08→21:46)
[2018-08-22] MEDS: PIPER-TAZO 3.375 GM IV (PMX) 100 ML IVPB SCH ×3 (05:31→18:30)
[2018-08-22 08:03] VITALS: BP 95/50; PULSE 95; RESP 16
[2018-08-22] MEDS: FAMOTIDINE 20 MG TAB PO SCH ×2 (08:49→22:10)
[2018-08-22] MEDS: MESALAMINE (EC) 400 MG CAP PO SCH ×3 (08:49→22:10)
[2018-08-22] MEDS: D5W-0.45 NACL + KCL 20 MEQ 1,000 ML IV SCH ×2 (08:56→18:30)
--- NOTE | 2018-08-22 09:26 | PN ---
Date/Time of Note Date/Time of Note DATE: 08/22/18 TIME: 09:23 Subjective Chart was reviewed. Complains of persistent abdominal pain especially with bowel movements. Still having diarrhea. Vital signs are stable afebrile Lungs are clear to auscultation Cardiac regular rate and rhythm Abdomen is soft. Diffusely tender to palpation. No rebound or guarding Extremities with no edema Neurological nonfocal Objective Vitals Vital Signs Date Temp Pulse Resp B/P (MAP) Pulse Ox O2 O2 Flow FiO2 Time Delivery Rate 08/22/18 98.6 95 16 95/50 (65) 97 08:03 08/20/18 Room Air 14:13 Intake and Output 08/21/18 08/21/18 08/22/18 1515:00 23:00 07:00 IntakeIntake Total 1110 ml 2500 ml 950 ml BalanceBalance 1110 ml 2500 ml 950 ml Results Result Diagram: 08/22/1852808/22/18528 Medications Medications Current Medications Piperacillin Sod/ Tazobactam Sod 100 ml @ 200 mls/hr Q6 IVPB Last administered on 08/22/18at 05:31; Admin Dose 200 MLS/HR; Start 08/20/18 at 12:00 Morphine Sulfate (morphine) 4 mg Q4H PRN IV SEVERE PAIN LEVEL 7-10 Last administered on 08/22/18at 06:01; Admin Dose 4 MG; Start 08/20/18 at 07:00 Morphine Sulfate (morphine) 2 mg Q4H PRN IV MODERATE PAIN LEVEL 4-6 Last administered on 08/21/18at 13:48; Admin Dose 2 MG; Start 08/20/18 at 07:00 Famotidine (Pepcid) 20 mg BID PO Last administered on 08/22/18at 08:49; Admin Dose 20 MG; Start 08/20/18 at 09:00 Acetaminophen (Tylenol Tab) 650 mg Q6H PRN PO MILD PAIN(1-3)OR ELEVATED TEMP; Start 08/20/18 at 07:00 Ondansetron HCl (Zofran Inj) 4 mg Q6H PRN IV NAUSEA AND/OR VOMITING; Start 08/20/18 at 07:00 Mesalamine (Delzicol Dr) 800 mg TID PO Last administered on 08/22/18at 08:49; Admin Dose 800 MG; Start 08/20/18 at 21:00 Potassium Chloride/Dextrose/ Sod Cl 1,000 ml @ 125 mls/hr Q8H IV Last administ ered on 08/22/18at 08:56; Admin Dose 125 MLS/HR; Start 08/21/18 at 11:00 VTE Prophylaxis Risk score (from [facility])>0 risk: 1 SCD applied (from [facility]): No SCD contraindication: low risk/ambulating Lines/Catheters IV Catheter Type: Saline Lock Hoyt in Place: No Assessment/Plan Assessment/Plan 22-year-old female with Crohn's exacerbation versus infectious diarrhea History of Crohn's as a child Persistent leukocytosis Status post cholecystectomy Continue Zosyn and mesalamine Await stool culture results and stool C. difficile GI follow-up Start steroids if infection is ruled out LAN CHAVARRIA MD Aug 22, 2018 09:26
[2018-08-22 10:13] VITALS: BP 119/59; PULSE 100
--- NOTE | 2018-08-22 12:46 | PN ---
Date/Time of Note Date/Time of Note DATE: 08/22/18 TIME: 12:41 Assessment/Plan VTE Prophylaxis Risk score (from Ns)>0 risk: 1 SCD applied (from Ns): No SCD contraindicated: other (scds) Pharmacological prophylaxis: other (scds) Lines/Catheters IV Catheter Type (from [facility]): Peripheral IV Urinary Cath still in place: No Assessment/Plan Assessment/Plan Summary Assessment and Plan: Assessment: Abdominal pain/diarrhea -Crohn's flare (CRP/ESR elevated) vs infectious vs other -CT 08/18/18- from [facility]- imaging compatible with inflammatory bowel disease involving primarily the colon. History of Crohn's disease- not on medication at home Leukocytosis (infectious vs reactive) -CDIFF - negative -Blood cx- without growth -Urine cx without growth Thrombocytosis- improving Normocytic anemia- stable Plan: Continue mesalamine/ Zosyn CDIFF is negative- Solu-Medrol has been started- we will monitor for improvement for sx, if not improvement over the next 24-48 hours will consider stopping and repeat imaging. KUB- negative Patient seen in collaboration with Dr. Acosta Subjective: Course reviewed with nursing staff Patient interviewed and examined All labs, imaging and other results reviewed PHYSICAL EXAMINATION: GENERAL: Well developed, well nourished, obese, alert & oriented x 3, in no acute distress SKIN: No lesions, no stigmata chronic liver disease, no evidence of bleeding diathesis EYES: Pupils equal reactive to light and accommodation, full extraocular movements, sclera clear, non-icteric, no discharge. EARS/NOSE AND THROAT: Ears normal, nose normal, oropharynx normal, oral membranes well hydrated without lesions. NECK: Supple, no masses CHEST: Inspection within normal limits. CARDIOVASCULAR: Heart: Regular rate and rhythm RESPIRATORY: Lungs clear to auscultation and percussion, no wheezing, no rubs GASTROINTESTINAL AND LIVER: Abdomen: Soft, generalized tenderness, non- distended, no hernias, no masses, no organomegaly, no ascites, no guarding, no rebound tenderness, normoactive bowel sounds. Rectal: Deferred. Result Diagram: 08/22/18 0529 08/22/18 0529 Results 24hrs Laboratory Tests Test 08/22/18 05:29 White Blood Count 25.3 H Red Blood Count 4.29 Hemoglobin 8.4 L Hematocrit 28.2 L Mean Corpuscular Volume 65.7 L Mean Corpuscular Hemoglobin 19.6 L Mean Corpuscular Hemoglobin Concent 29.8 L Red Cell Distribution Width 17.8 H Platelet Count 615 H Mean Platelet Volume 9.7 Immature Granulocytes % 0.600 H Neutrophils % Segmented Neutrophils % (Manual) 66 Band Neutrophils % (Manual) 9 H Lymphocytes % Lymphocytes % (Manual) 17 Monocytes % Monocytes % (Manual) 3 Eosinophils % Eosinophils % (Manual) 5 Basophils % Nucleated Red Blood Cells % 0.1 H Immature Granulocytes # 0.160 H Neutrophils # Neutrophils # (Manual) 17.3 H Band Neutrophils # 2.2 H Lymphocytes (Manual) 4.3 H Lymphocytes # Monocytes # Monocytes # (Manual) 0.7 Eosinophils # Basophils # Nucleated Red Blood Cells # Platelet Estimate INCREASED Giant Platelets 1 H Polychromasia 3+ Hypochromasia 1+ Poikilocytosis 3+ Anisocytosis 3+ Microcytosis 3+ Target Cells 2+ Ovalocytes 1+ Elliptocytes 1+ Sodium Level 138 Potassium Level 3.8 Chloride Level 100 Carbon Dioxide Level 25 Anion Gap 13 Blood Urea Nitrogen 4 L Creatinine 0.73 Est Glomerular Filtrat Rate mL/min > 60 Glucose Level 86 Calcium Level 8.4 Phosphorus Level 3.2 Magnesium Level 1.8 Total Bilirubin 0.1 L Direct Bilirubin 0.00 Indirect Bilirubin 0.1 Aspartate Amino Transf (AST/SGOT) 12 L Alanine Aminotransferase (ALT/SGPT) 9 L Alkaline Phosphatase 62 Total Protein 6.5 Albumin 3.2 L Globulin 3.30 H Albumin/Globulin Ratio 0.96 Exam/Review of Systems Exam Vitals Vital Signs Date Temp Pulse Resp B/P (MAP) Pulse Ox O2 O2 Flow FiO2 Time Delivery Rate 08/22/18 100 119/59 10:13 (79) 08/22/18 98.6 16 97 08:03 08/20/18 Room Air 14:13 Intake and Output 08/21/18 08/21/18 08/22/18 1515:00 23:00 07:00 IntakeIntake Total 1110 ml 2500 ml 950 ml BalanceBalance 1110 ml 2500 ml 950 ml Results Results 24hrs Laboratory Tests Test 08/22/18 05:29 White Blood Count 25.3 H Red Blood Count 4.29 Hemoglobin 8.4 L Hematocrit 28.2 L Mean Corpuscular Volume 65.7 L Mean Corpuscular Hemoglobin 19.6 L Mean Corpuscular Hemoglobin Concent 29.8 L Red Cell Distribution Width 17.8 H Platelet Count 615 H Mean Platelet Volume 9.7 Immature Granulocytes % 0.600 H Neutrophils % Segmented Neutrophils % (Manual) 66 Band Neutrophils % (Manual) 9 H Lymphocytes % Lymphocytes % (Manual) 17 Monocytes % Monocytes % (Manual) 3 Eosinophils % Eosinophils % (Manual) 5 Basophils % Nucleated Red Blood Cells % 0.1 H Immature Granulocytes # 0.160 H Neutrophils # Neutrophils # (Manual) 17.3 H Band Neutrophils # 2.2 H Lymphocytes (Manual) 4.3 H Lymphocytes # Monocytes # Monocytes # (Manual) 0.7 Eosinophils # Basophils # Nucleated Red Blood Cells # Platelet Estimate INCREASED Giant Platelets 1 H Polychromasia 3+ Hypochromasia 1+ Poikilocytosis 3+ Anisocytosis 3+ Microcytosis 3+ Target Cells 2+ Ovalocytes 1+ Elliptocytes 1+ Sodium Level 138 Potassium Level 3.8 Chloride Level 100 Carbon Dioxide Level 25 Anion Gap 13 Blood Urea Nitrogen 4 L Creatinine 0.73 Est Glomerular Filtrat Rate mL/min > 60 Glucose Level 86 Calcium Level 8.4 Phosphorus Level 3.2 Magnesium Level 1.8 Total Bilirubin 0.1 L Direct Bilirubin 0.00 Indirect Bilirubin 0.1 Aspartate Amino Transf (AST/SGOT) 12 L Alanine Aminotransferase (ALT/SGPT) 9 L Alkaline Phosphatase 62 Total Protein 6.5 Albumin 3.2 L Globulin 3.30 H Albumin/Globulin Ratio 0.96 Medications Medication Current Medications Piperacillin Sod/ Tazobactam Sod 100 ml @ 200 mls/hr Q6 IVPB Last administered on 08/22/18at 12:09; Admin Dose 200 MLS/HR; Start 08/20/18 at 12:00 Morphine Sulfate (morphine) 4 mg Q4H PRN IV SEVERE PAIN LEVEL 7-10 Last administered on 08/22/18at 10:14; Admin Dose 4 MG; Start 08/20/18 at 07:00 Morphine Sulfate (morphine) 2 mg Q4H PRN IV MODERATE PAIN LEVEL 4-6 Last administered on 08/21/18at 13:48; Admin Dose 2 MG; Start 08/20/18 at 07:00 Famotidine (Pepcid) 20 mg BID PO Last administered on 08/22/18at 08:49; Admin Dose 20 MG; Start 08/20/18 at 09:00 Acetaminophen (Tylenol Tab) 650 mg Q6H PRN PO MILD PAIN(1-3)OR ELEVATED TEMP; Start 08/20/18 at 07:00 Ondansetron HCl (Zofran Inj) 4 mg Q6H PRN IV NAUSEA AND/OR VOMITING; Start 08/20/18 at 07:00 Mesalamine (Delzicol Dr) 800 mg TID PO Last administered on 08/22/18at 12:09; Admin Dose 800 MG; Start 08/20/18 at 21:00 Potassium Chloride/Dextrose/ Sod Cl 1,000 ml @ 125 mls/hr Q8H IV Last administered on 08/22/18at 08:56; Admin Dose 125 MLS/HR; Start 08/21/18 at 11:00 Methylprednisolone Sodium Succinate (Solu-Medrol) 60 mg Q8 IV ; Start 08/22/18 at 14:00 ESTEBAN ALARCON Aug 22, 2018 12:46
[2018-08-22] MEDS: METHYLPREDNISOLONE 125 MG INJ IV SCH ×2 (13:59→22:10)
[2018-08-22] MEDS ORDERED: IBUPROFEN 600 MG TAB PO PRN (14:00)
[2018-08-22 14:22] VITALS: BP 107/66; PULSE 97; RESP 16
[2018-08-22 20:26] VITALS: BP 116/56; PULSE 80; RESP 18
[2018-08-22] MEDS ORDERED: ZOLPIDEM 5 MG TAB PO PRN (23:30)
[2018-08-23] MEDS: PIPER-TAZO 3.375 GM IV (PMX) 100 ML IVPB SCH ×3 (00:18→11:02)
[2018-08-23 01:47] VITALS: BP 117/52; PULSE 66; RESP 18
[2018-08-23] MEDS: morphine 4 MG/ML VIAL IV PRN ×3 (01:57→13:18)
[2018-08-23] MEDS: D5W-0.45 NACL + KCL 20 MEQ 1,000 ML IV SCH ×2 (03:00→11:02)
[2018-08-23] MEDS: METHYLPREDNISOLONE 125 MG INJ IV SCH ×2 (06:49→13:39)
[2018-08-23 07:20] VITALS: BP 116/70; PULSE 76; RESP 18
[2018-08-23] MEDS: FAMOTIDINE 20 MG TAB PO SCH (08:06)
[2018-08-23] MEDS: MESALAMINE (EC) 400 MG CAP PO SCH ×2 (08:06→13:39)
[2018-08-23] MEDS ORDERED: ASA400 PO (09:32)
[2018-08-23] MEDS ORDERED: PRED20TA PO (09:32)
[2018-08-23] MEDS ORDERED: PANT40TA3 PO (09:32)
--- NOTE | 2018-08-23 09:35 | PDOCDIS ---
Discharge Instructions DIAGNOSIS Discharge Diagnosis 22-year-old female with Crohn's exacerbation Moderate obesity History of childhood Crohn's 22-year-old female with history of childhood Crohn's, presented to emergency room with complaint of abdominal pain associated with diarrhea. CAT scan of the abdomen and pelvis showed colitis. Patient was seen in consultation by Dr. Acosta. Stool culture was negative. Stool C. difficile was also negative. Patient was initially started on mesalamine and then I started her on Solu-Medrol. Her diarrhea subsided. She is in a stable condition for discharge. White blood cell count remained elevated. I prescribed 7 days of Augmentin. Patient will follow up with PCP and GI as outpatient. Her exam was unremarkable. CONDITION [id number] Patient Condition: [id number] Good HOME CARE INSTRUCTIONS: [id number] Diet Instructions: [id number] Regular ACTIVITY: [id number] Activity Restrictions: [id number] No Restrictions FOLLOW UP/APPOINTMENTS Follow-up Plan pcp [address] Acosta 1 week LAN CHAVARRIA MD Aug 23, 2018 09:35
[2018-08-23] MEDS ORDERED: AMOX1TAB10 PO (09:36)
== END 2018-08-23 14:57 | disposition home or self-care (01) | DRG 386 ==
LOC: FTE 19:28 → PP2 23:49
PROVIDERS: ADMIT Internal Medicine; ATTEND Internal Medicine
DX: K50.911 Crohn's disease, unspecified, with rectal bleeding (principal); D62 Acute posthemorrhagic anemia; N39.0 Urinary tract infection, site not specified; D50.0 Iron deficiency anemia secondary to blood loss (chronic); Z90.49 Acquired absence of other specified parts of digestive tract; E66.9 Obesity, unspecified; Z68.37 Body mass index [BMI] 37.0-37.9, adult; D47.3 Essential (hemorrhagic) thrombocythemia; D72.829 Elevated white blood cell count, unspecified
CPT/HCPCS: 36415; 74018; 80048; 80053; 80307; 81001; 82150; 82270; 83605; 83690; 83735; 84100; 84703; 85025; 85651; 86140; 86674; 87040; 87045; 87075; 87086; 96361; 96365; 96375; 96376; J1100; J2270; J2405; J2543; J2930; J3480; J7030; J7042

== ENCOUNTER 2018-10-20 15:26 | Emergency (ER) | payer OTHER ==
[~2018-10-20] VITALS: Ht 154.9 cm; Wt 85.0 kg
[~2018-10-20 15:26] MED LIST changes: +AMOX1TAB10 PO; +ASA400 PO; -CEPH-443 PO; -CIPR500T4 PO; -DICY10CA40 PO; -METR500T PO; +PANT40TA3 PO; +PRED20TA PO; -PREDNISONE; -PRENAT PO
[2018-10-20 15:43] VITALS: Ht 154.9 cm; Wt 85.0 kg
[2018-10-20] MEDS ORDERED: morphine 2 MG INJ IV STA ×2 (17:04→19:58)
--- NOTE | 2018-10-20 17:28 | ERD ---
ER Documentation Chief Complaint Chief Complaint ABD PAIN AFTER EATING, DIARRHEA WITH BLOOD IN STOOL - HX OF CROHNS HPI 23-year-old female past medical history of Crohn's disease who presents with 2- week complaint of epigastric abdominal pain, persistent body diarrhea. Abdominal pain is described as dull epigastric pain similar to her prior episodes of Crohn's flare. She has been having bouts of diarrhea about 7- 10/day. Noticed clots of blood mixed in with stools. She denies associated nausea or vomiting. States anything she eats or drinks she immediately has bouts of diarrhea. He notes with Crohn's at 13 years old has not been following up with a GI specialist and is not on any related medications for Crohn's. Was hospitalized 2 months ago for similar problems type flare with electrolyte derangement, dehydration, elevated white blood cell count requiring antibiotic treatment. She denies OCP or regular NSAID use. She otherwise denies fevers, chills, shortness of breath, dyspnea, chest pain, weight loss and reports relatively good health prior to the onset of the symptoms. ROS All systems reviewed and are negative except as per history of present illness. Medications Home Meds Active Scripts Acetaminophen* (Tylophen*) 500 Mg Capsule, 1 CAP PO Q6H PRN for PAIN AND OR ELEVATED TEMP, #20 CAP Prov:RYANNE COTE PA-C 10/20/18 Prednisone* (Prednisone*) 20 Mg Tab, 60 MG PO DAILY for 5 Days, TAB Prov:RYANNE COTE PA-C 10/20/18 Amoxicillin/Potassium Clav (Amox-Clav 875-125 mg Tablet) 875-125 mg Tab, 1 TAB P O BID for 7 Days, #14 TAB Prov:LAN CHAVARRIA MD 08/23/18 Pantoprazole* (Protonix*) 40 Mg Tablet.dr, 40 MG PO DAILY for 30 Days, #30 TAB Prov:LAN CHAVARRIA MD 08/23/18 Prednisone* (Prednisone*) 20 Mg Tab, 40 MG PO DAILY for 30 Days, #30 TAB Prov:LAN CHAVARRIA MD 08/23/18 Mesalamine (Delzicol) 400 Mg Cap.drtab., 800 MG PO TID for 30 Days, 3 Refills Prov:LAN CHAVARRIA MD 08/23/18 Allergies Allergies: Coded Allergies: No Known Drug Allergy (Unverified Allergy, Mild, 08/20/18) PMhx/Soc History of Surgery: Yes ( (Aug,); cholycystectomy (2016)) Anesthesia Reaction: No Hx Neurological Disorder: No Hx Respiratory Disorders: No Hx Cardiac Disorders: No Hx Psychiatric Problems: Yes (anxiety) Hx Miscellaneous Medical Probl: No Hx Alcohol Use: Yes (occasional ETOH use (last unknown)) Hx Substance Use: No Hx Tobacco Use: No Smoking Status: Never smoker FmHx Family History: No diabetes, No coronary disease, No other Physical Exam Vitals Vital Signs Date Temp Pulse Resp B/P (MAP) Pulse Ox O2 O2 Flow FiO2 Time Delivery Rate 10/20/18 98.4 63 18 119/62 100 Room Air 20:45 (81) 10/20/18 98.8 83 17 127/86 99 15:43 (100) Physical Exam I have reviewed the triage vital signs. Const: Well nourished, well developed, appears stated age Eyes: PERRL, no conjunctival injection HENT: NCAT, Neck supple without meningismus CV: RRR, Warm, well-perfused extremities RESP: CTAB, Unlabored respiratory effort GI: soft, distended,tenderness to epigastrium,no masses MSK: No gross deformities appreciated Skin: Warm, dry. No rashes Neuro: grossly non focal Psych: Appropriate mood and affect. Result Diagram: 10/20/18 1714 10/20/18 1714 Results 24 hrs Laboratory Tests Test 10/20/18 17:09 10/20/18 17:14 POC Beta HCG, Qualitative NEGATIVE White Blood Count 19.4 10^3/ul Red Blood Count 5.02 10^6/ul Hemoglobin 9.6 g/dl Hematocrit 32.6 % Mean Corpuscular Volume 64.9 fl Mean Corpuscular Hemoglobin 19.1 pg Mean Corpuscular Hemoglobin Concent 29.4 g/dl Red Cell Distribution Width 17.6 % Platelet Count 732 10^3/UL Mean Platelet Volume 9.8 fl Immature Granulocytes % 0.300 % Neutrophils % % Segmented Neutrophils % (Manual) 62 % Band Neutrophils % (Manual) 2 % Lymphocytes % % Lymphocytes % (Manual) 22 % Monocytes % % Monocytes % (Manual) 5 % Eosinophils % % Eosinophils % (Manual) 8 % Basophils % % Basophils % (Manual) 1 % Nucleated Red Blood Cells % 0.0 /100WBC Immature Granulocytes # 0.060 10^3/ul Neutrophils # 10^3/ul Neutrophils # (Manual) 12.1 10^3/ul Band Neutrophils # 0.3 10^3/ul Lymphocytes (Manual) 4.2 10^3/ul Lymphocytes # 10^3/ul Monocytes # 10^3/ul Monocytes # (Manual) 0.9 10^3/ul Eosinophils # 10^3/ul Basophils # 10^3/ul Basophils # (Manual) 0.1 10^3/ul Nucleated Red Blood Cells # 10^3/ul Platelet Estimate INCREASED Giant Platelets 2 % Hypochromasia 2+ Poikilocytosis 2+ Anisocytosis 2+ Microcytosis 2+ Ovalocytes 2+ Erythrocyte Sedimentation Rate 18 mm/Hr Urine Color STRAW Urine Clarity CLEAR Urine pH 7.0 Urine Specific [place] 1.009 Urine Ketones NEGATIVE mg/dL Urine Nitrite NEGATIVE mg/dL Urine Bilirubin NEGATIVE mg/dL Urine Urobilinogen NEGATIVE mg/dL Urine Leukocyte Esterase TRACE Cherelle/ul Urine Microscopic RBC 0 /HPF Urine Microscopic WBC 1 /HPF Urine Squamous Epithelial Cells FEW /HPF Urine Bacteria FEW /HPF Urine Hemoglobin 1+ mg/dL Urine Glucose NEGATIVE mg/dL Urine Total Protein NEGATIVE mg/dl Sodium Level 139 mmol/L Potassium Level 4.2 mmol/L Chloride Level 107 mmol/L Carbon Dioxide Level 22 mmol/L Anion Gap 10 Blood Urea Nitrogen 7 mg/dl Creatinine 0.62 mg/dl Est Glomerular Filtrat Rate mL/min > 60 mL/min Glucose Level 81 mg/dl Calcium Level 9.9 mg/dl Total Bilirubin 0.4 mg/dl Direct Bilirubin 0.00 mg/dl Indirect Bilirubin 0.4 mg/dl Aspartate Amino Transf (AST/SGOT) 18 IU/L Alanine Aminotransferase (ALT/SGPT) 7 IU/L Alkaline Phosphatase 93 IU/L C-Reactive Protein 0.9 mg/dl Total Protein 8.4 g/dl Albumin 4.3 g/dl Globulin 4.10 g/dl Albumin/Globulin Ratio 1.04 Lipase 72 U/L Current Medications Medications Dose Sig/Lukas Start Time Status Last (Trade) Ordered Route PRN Stop Time Admin Dose Reason Admin Morphine 2 mg ONCE STAT 10/20/18 DC 10/20/18 Sulfate IV 17:04 17:26 (morphine) 10/20/18 17:06 Sodium 1,000 ml @ Q8H IV 10/20/18 DC 10/20/18 Chloride 125 mls/hr 17:30 17:26 10/20/18 21:33 10 mg ONCE ONCE 10/20/18 DC Dexamethasone IM 18:30 (Decadron) 10/20/18 18:56 10 mg ONCE ONCE 10/20/18 DC 10/20/18 Dexamethasone IV 19:00 18:59 (Decadron) 10/20/18 19:01 Ibuprofen 600 mg ONCE ONCE 10/20/18 DC 10/20/18 (Motrin) PO 19:30 19:22 10/20/18 19:31 Morphine 1 mg ONCE STAT 10/20/18 DC 10/20/18 Sulfate IV 19:58 20:03 (morphine) 10/20/18 19:59 Procedures/MDM 23-year-old female with known history of Crohn's disease who presents with likely Crohn's flare/colitis. She has no other systemic signs or symptoms related to Crohn's disease. Given low suspicion for acute intra-abdominal process such as obstruction, intra-abdominal abscess, perforation will defer CT of abdomen at this time. I have low suspicion for appendicitis, diverticulitis, cholecystitis, ulcer, perforation, early bowel obstruction, mesenteric ischemia, kidney stone, or even kidney infection. She has poor follow-up and patient counseled on the need to establish care with PMD and appropriate specialist for judgment of Crohn's disease. She otherwise nontoxic-appearing and improved with symptomatic management in the ED and can be discharged with outpatient follow-up and return for re-examination in 12 hours. ED course: 1 L IVF Pain control with morphine Decadron 10 mg X1 Has WBC count of 19,000, noted thrombocythemia often seen in Crohn's disease and consistent with previous ones flare presentation, but no signs symptoms of sepsis, afebrile X-ray abdomen without acute findings ESR 18 CRP 0.9 Lipase WNL, LFT's WNL Reassessment: Patient with improvement in symptoms on reexamination, with less pain and appearing much more comfortable, reassuring exam Plan: Symptomatic treatment Short course of high-dose steroids PMD follow-up, GI referral as she needs to establish care and likely needs to be on chronic medications to avoid Crohn's flare, joint patient in detail the need for close follow-up with her PMD as well as GI specialist 8-12-hour return for reexamination Strict return precautions explained in detail DISPOSITION PLAN: We discussed follow up with the patient's primary care doctor within 24 to 48 hours. Patient counseled regarding my diagnostic impression and care plan. Prior to discharge all questions answered. Pt agrees with treatment plan and understands strict return precautions. Precautionary instructions provided including instructions to return to the ER if not improving or for any worsening or changing symptoms or concerns. Departure Diagnosis: Primary Impression: Crohn disease Condition: Stable RYANNE COTE PA-C Oct 20, 2018 17:28
[2018-10-20] MEDS ORDERED: SOD CHLORIDE 0.9% 1,000 ML IV SCH (17:30)
[2018-10-20] MEDS ORDERED: DEXAMETHASONE 10 MG/ML 1 ML INJ IM ONE (18:30)
[2018-10-20] MEDS ORDERED: DEXAMETHASONE 10 MG/ML 1 ML INJ IV ONE (19:00)
[2018-10-20] MEDS ORDERED: IBUPROFEN 600 MG TAB PO ONE (19:30)
[2018-10-20] MEDS ORDERED: PRED20TA PO (19:51)
[2018-10-20 20:45] VITALS: BP 119/62; PULSE 63; RESP 18
[2018-10-20] MEDS ORDERED: ACET500C5 PO (21:19)
== END 2018-10-20 21:30 | disposition home or self-care (01) ==
LOC: FTE 15:26
DX: K50.90 Crohn's disease, unspecified, without complications (principal)
CPT/HCPCS: 36415; 74019; 80053; 81001; 81025; 83690; 85025; 85651; 86140; 86850; 86900; 86901; 96361; 96374; 96375; 96376; J1100; J2270; J7030; Z7502; Z7610